=== PATIENT | female | born 1965 | race African-American/Black ===

== ENCOUNTER 2016-06-28 16:55 | Emergency (ER) | payer MEDICARE, MEDICAID ==
[~2016-06-28] VITALS: Ht 170.2 cm; Wt 75.0 kg
[2016-06-28] MEDS ORDERED: HYDR25TA PO (16:57)
[2016-06-28] MEDS ORDERED: MACR100 PO (16:59)
[2016-06-28] MEDS ORDERED: GABA-529 PO (16:59)
[2016-06-28] MEDS ORDERED: PERTUSS(ACELL),DIPH,TET VAC/PF 0.5 ML VIAL IM ONE (18:15)
[2016-06-28] MEDS ORDERED: BACITRACIN 0.9 GM PACKET OINTMENT TP ONE (18:15)
[2016-06-28 18:26] VITALS: BP 142/87
[2016-06-28] MEDS ORDERED: IBUPROFEN 800 MG TABLET PO ONE (18:30)
== END 2016-06-28 18:57 | disposition home or self-care (01) ==
LOC: EMS 16:59
DX: S81.811A Laceration without foreign body, right lower leg, initial encounter (principal); I10 Essential (primary) hypertension; F17.210 Nicotine dependence, cigarettes, uncomplicated; W45.8XXA Other foreign body or object entering through skin, initial encounter; Y93.89 Activity, other specified; Y92.89 Other specified places as the place of occurrence of the external cause; Y99.9 Unspecified external cause status
CPT/HCPCS: 90471; 90715; 99283; 99406